=== PATIENT | male | born 1950 | race Caucasian/White ===

== ENCOUNTER → 2019-08-20 | Outpatient (CLI) | payer MEDICARE | END | disposition home or self-care (01) | LOC: WOUND 08:58 | PROVIDERS: ATTEND Internal Medicine | DX: E11.621 Type 2 diabetes mellitus with foot ulcer (principal); L97.522 Non-pressure chronic ulcer of other part of left foot with fat layer exposed; Z86.718 Personal history of other venous thrombosis and embolism; Z87.891 Personal history of nicotine dependence | CPT/HCPCS: 11042; G0463 ==

== ENCOUNTER → 2019-08-27 | Outpatient (CLI) | payer MEDICARE | END | disposition home or self-care (01) | LOC: WOUND 10:01 | PROVIDERS: ATTEND Internal Medicine | DX: E11.621 Type 2 diabetes mellitus with foot ulcer (principal); L97.522 Non-pressure chronic ulcer of other part of left foot with fat layer exposed; Z86.718 Personal history of other venous thrombosis and embolism; Z87.891 Personal history of nicotine dependence | CPT/HCPCS: 97597 ==